=== PATIENT | male | born 1940 | race Hispanic/Latino ===

== ENCOUNTER 2023-02-25 10:04 | Inpatient (IN) | payer OTHER ==
--- NOTE | 2023-02-25 11:23 | RAD REPORT ---
EXAM DESCRIPTION: Perla Single View02/25/2023 11:16 am CLINICAL HISTORY: CHEST PAIN COMPARISON: No comparisons TECHNIQUE: Portable AP view of the chest. FINDINGS: The lungs are clear. No pneumothorax or effusion. 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 . IMPRESSION: No acute cardiopulmonary process.
[2023-02-25] MEDS ORDERED: ASPIRIN 81 MG CHEWABLE TABLET ONE (11:29)
[2023-02-25 11:31] LABS: Absolute Lymphocytes (CBC) 2.1 K/uL (0.7-4.9); Hematocrit 41.1 % (39.6-49.0); Lymphocytes % 23.9 % (15.3-44.8); MCV 91.2 fL (80-100); MPV 8.8 fL (7.6-11.3); Platelets 191 thou/uL (152-406); RBC Red Blood Cell Count 4.51 M/uL (4.33-5.43)
[2023-02-25 11:35] LABS: Protime INR 1.01
[2023-02-25 12:00] LABS: Bilirubin Direct 0.3 mg/dL (0-0.2); Bilirubin Indirect, Calculated 0.8 mg/dL (0.2-0.8); Bilirubin Total 1.1 mg/dL (0.2-1.0); Magnesium 2.4 mg/dL (1.6-2.4); Potassium 3.6 mEq/L (3.5-5.1); Protein, Total 7.7 g/dL (6.4-8.2); Troponin High Sensitivity 7.8 pg/mL (<58.9)
--- NOTE | 2023-02-25 13:00 | EDPHYS ---
Physician Documentation [facility] Name: Jaiden Florence Age: 82 yrs Sex: Male : 1940 Arrival Date: 02/25/2023 Time: 10:04 Bed 15 Private MD: ED Physician Santino Pathak HPI: 02/25 12:44 This 82 yrs old Male presents to ER via Ambulatory with complaints of Chest aretha Pain. 12:44 The patient or guardian reports chest pain that is located primarily in the substernal aretha area. Onset: yesterday. The pain does not radiate. Associated signs and symptoms: The patient has no apparent associated signs or symptoms. The chest pain is described as causing indigestion, a pressure. Duration: The patient or guardian reports multiple episodes, with no pattern. Modifying factors: The symptoms are alleviated by nothing. the symptoms are aggravated by nothing. Severity of pain: At its worst the pain was mild in the emergency department the pain has resolved and did so just prior to arrival. The patient has experienced similar episodes in the past, a few times. Historical: - Allergies: 10:19 No Known Allergies; ko1 - PSHx: 10:19 Coronary artery bypass graft; ko1 - Immunization history:: Adult Immunizations up to date. - Social history:: Smoking status: Patient denies any tobacco usage or history of. - Family history:: not pertinent. ROS: 12:44 Constitutional: Negative for fever, chills, and weight loss, Eyes: Negative for injury, aretha pain, redness, and discharge, ENT: Negative for injury, pain, and discharge, Neck: Negative for injury, pain, and swelling, Respiratory: Negative for shortness of breath, cough, wheezing, and pleuritic chest pain, Abdomen/GI: Negative for abdominal pain, nausea, vomiting, diarrhea, and constipation, Back: Negative for injury and pain, : Negative for injury, bleeding, discharge, and swelling, MS/Extremity: Negative for injury and deformity, Skin: Negative for injury, rash, and discoloration, Neuro: Negative for headache, weakness, numbness, tingling, and seizure, Psych: Negative for depression, anxiety, suicide ideation, homicidal ideation, and hallucinations, Allergy/Immunology: Negative for hives, rash, and allergies, Endocrine: Negative for neck swelling, polydipsia, polyuria, polyphagia, and marked weight changes, Hematologic/Lymphatic: Negative for swollen nodes, abnormal bleeding, and unusual bruising. 12:44 Cardiovascular: Positive for chest pain, of the chest. Exam: 12:44 Constitutional: This is a well developed, well nourished patient who is awake, alert, aretha and in no acute distress. Head/Face: Normocephalic, atraumatic. Eyes: Pupils equal round and reactive to light, extra-ocular motions intact. Lids and lashes normal. Conjunctiva and sclera are non-icteric and not injected. Cornea within normal limits. Periorbital areas with no swelling, redness, or edema. ENT: Nares patent. No nasal discharge, no septal abnormalities noted. Tympanic membranes are normal and external auditory canals are clear. Oropharynx with no redness, swelling, or masses, exudates, or evidence of obstruction, uvula midline. Mucous membranes moist. Neck: Trachea midline, no thyromegaly or masses palpated, and no cervical lymphadenopathy. Supple, full range of motion without nuchal rigidity, or vertebral point tenderness. No Meningismus. Chest/axilla: Normal chest wall appearance and motion. Nontender with no deformity. No lesions are appreciated. Cardiovascular: Regular rate and rhythm with a normal S1 and S2. No gallops, murmurs, or rubs. Normal PMI, no JVD. No pulse deficits. Respiratory: Lungs have equal breath sounds bilaterally, clear to auscultation and percussion. No rales, rhonchi or wheezes noted. No increased work of breathing, no retractions or nasal flaring. Abdomen/GI: Soft, non-tender, with normal bowel sounds. No distension or tympany. No guarding or rebound. No evidence of tenderness throughout. Back: No spinal tenderness. No costovertebral tenderness. Full range of motion. Male : Normal genitalia with no discharge or lesions. Skin: Warm, dry with normal turgor. Normal color with no rashes, no lesions, and no evidence of cellulitis. MS/ Extremity: Pulses equal, no cyanosis. Neurovascular intact. Full, normal range of motion. Neuro: Awake and alert, GCS 15, oriented to person, place, time, and situation. Cranial nerves II-XII grossly intact. Motor strength 5/5 in all extremities. Sensory grossly intact. Cerebellar exam normal. Normal gait. Psych: Awake, alert, with orientation to person, place and time. Behavior, mood, and affect are within normal limits. 12:44 ECG was reviewed by the Attending Physician. Vital Signs: 10:17 BP 175 / 84; Pulse 52; Resp 16; Temp 97.7; Pulse Ox 100% ; Weight 83.91 kg; Height 5 ko1 ft. 7 in. ; 12:08 BP 174 / 86; Pulse 55; Resp 16; Pulse Ox 96% on R/A; ph 13:00 BP 169 / 86; Pulse 83; Resp 18; Pulse Ox 98% on R/A; ph 14:00 BP 172 / 89; Pulse 53; Resp 17; Pulse Ox 99% on R/A; ph 15:30 BP 162 / 78; Pulse 61; Resp 18; Pulse Ox 99% on R/A; ph 17:07 BP 158 / 78; Pulse 62; Resp 18; Temp 97.4; Pulse Ox 98% on R/A; ph 10:17 Body Mass Index 28.97 (83.91 kg, 170.18 cm) ko1 MDM: 10:12 Patient medically screened. aretha 12:49 Differential diagnosis: abnormal EKG, acute myocardial infarction, coronary artery aretha disease chest wall pain, congestive heart failure costochondritis, esophagitis, hiatal hernia, pneumonia, stable angina, unstable angina. HEART Score: History: Moderately Suspicious (1), ECG: Non specific repolarization disturbance / LBTB / PM (1), Age: > or = 65 years (2), Risk Factors: > or = 3 Risk factors for atherosclerotic disease (2), [Hypercholesterolemia] [+ Family HX] [Obesity] Troponin: < or = 1 x Normal Limit (0). The patient was given aspirin in the Emergency Department. Data reviewed: vital signs, nurses notes, lab test result(s), EKG, radiologic studies, plain films. Consideration of Admission/Observation Escalation of care including admission/observation considered. I considered the following discharge prescriptions or medication management in the emergency department Medications were administered in the Emergency Department. See MAR. Test considered but Not performed: CT: no ct chest . Care significantly affected by the following chronic conditions: Hypertension, hard of hearing. 02/25 10:13 Order name: Basic Metabolic Panel; Complete Time: 12:14 aretha 02/25 10:13 Order name: CBC with Diff; Complete Time: 12:14 02/25 10:13 Order name: LFT's; Complete Time: 12:14 [facility] 02/25 10:13 Order name: Magnesium; Complete Time: 12:14 [facility] 02/25 10:13 Order name: NT PRO-BNP; Complete Time: 12:14 02/25 10:13 Order name: PT-INR; Complete Time: 12:14 [facility] 02/25 10:13 Order name: Troponin HS; Complete Time: 12:14 [facility] 02/25 10:13 Order name: Lipase; Complete Time: 12:14 [facility] 02/25 10:13 Order name: Urinalysis w/ reflexes; Complete Time: 18:39 [facility] 02/25 12:44 Order name: Lipid Profile; Complete Time: 18:39 [facility] 02/25 10:13 Order name: XRAY Chest (1 view); Complete Time: 12:14 [facility] 02/25 10:13 Order name: EKG; Complete Time: 10:14 [facility] 02/25 10:13 Order name: Cardiac monitoring; Complete Time: 10:51 [facility] 02/25 10:13 Order name: EKG - Nurse/Tech; Complete Time: 12:04 [facility] 02/25 10:13 Order name: IV Saline Lock; Complete Time: 10:58 [facility] 02/25 10:13 Order name: Labs collected and sent; Complete Time: 10:58 [facility] 02/25 10:13 Order name: O2 Per Protocol; Complete Time: 10:51 02/25 10:13 Order name: O2 Sat Monitoring; Complete Time: 10:51 [facility] EC:00 Rate is 57 beats/min. Rhythm is regular. QRS [place] is Normal. [place] interval is normal. QRS aretha interval is normal. QT interval is normal. No Q waves. T waves are Normal. No ST changes noted. Clinical impression: NSR w/ Non-specific ST/T Changes and No evidence of ischemia. Interpreted by me. Reviewed by me. Administered Medications: 12:04 Drug: Aspirin PO Chewable Tablet 162 mg Route: PO; ph 14:30 Follow up: Response: No adverse reaction ph 13:49 Drug: Enoxaparin Sub-Q 1 mg/kg Route: Sub-Q; Site: abdomen; ph 14:30 Follow up: Response: No adverse reaction ph 13:49 Drug: Clopidogrel PO 75 mg Route: PO; ph 14:30 Follow up: Response: No adverse reaction ph 13:49 Drug: Atorvastatin PO 20 mg Route: PO; ph 14:30 Follow up: Response: No adverse reaction ph Disposition Summary: 02/25/23 13:00 Hospitalization Ordered Hospitalization Status: Observation aretha Location: Telemetry/MedSurg (observation) aretha Condition: Fair aretha Problem: new aretha Symptoms: have improved aretha Bed/Room Type: Standard aretha Provider: Quan Colorado(02/25/23 13:16) aretha Room Assignment: 208(02/25/23 15:49) rd2 Diagnosis - Chest pain, unspecified aretha - Essential (primary) hypertension aretha Forms: - Medication Reconciliation Form aretha - SBAR form aretha - Leadership Thank You Letter aretha Signatures: Dispatcher [employer] EDSantino Lal MD MD cha Attema, Lee, MACHINE LEATHER TRIMMER-C MACHINE LEATHER TRIMMER-Cla1 Azra Larry RN RN ph Lewis, Lynsay, RN RN ll1 Lori Ayoub RN RN koAngela Santiago RN RN rd2 Corrections: (The following items were deleted from the chart) 13:16 13:00 Socrates Perales cha aretha 13:18 13:00 aretha rd2 13:49 13:18 426 rd2 ll1 15:49 13:49 ll1 rd2
--- NOTE | 2023-02-25 13:00 | ER ---
Nurse's Notes [facility] Name: Jaiden Florence Age: 82 yrs Sex: Male : 1940 Arrival Date: 02/25/2023 Time: 10:04 Bed 15 Private MD: Diagnosis: Chest pain, unspecified;Essential (primary) hypertension Presentation: 02/25 10:17 Chief complaint: Patient states: had an episode of chest pain yesterday and again this ko1 morning, non radiating, no other symptoms, had open heart surgery in [place] 3 years ago. Went to the [place] this morning and they sent me here as a precaution. Coronavirus screen: At this time, the client does not indicate any symptoms associated with coronavirus-19. Ebola Screen: No symptoms or risks identified at this time. Initial Sepsis Screen: Does the patient meet any 2 criteria? No. Patient's initial sepsis screen is negative. Does the patient have a suspected source of infection? No. Patient's initial sepsis screen is negative. Risk Assessment: Do you want to hurt yourself or someone else? Patient reports no desire to harm self or others. Onset of symptoms was February 25, 2023. 10:17 Method Of Arrival: Ambulatory ko1 10:17 Acuity: DIANN 3 ko1 Triage Assessment: 10:19 General: Appears in no apparent distress. comfortable, Behavior is calm, cooperative, ko1 appropriate for age. Pain: Denies pain. Cardiovascular: Reports had chest pain, pinpoint at midsternal area. Nonradiating, and is gone now. Historical: - Allergies: 10:19 No Known Allergies; ko1 - PSHx: 10:19 Coronary artery bypass graft; ko1 - Immunization history:: Adult Immunizations up to date. - Social history:: Smoking status: Patient denies any tobacco usage or history of. - Family history:: not pertinent. Screenin:08 [facility] ED Fall Risk Assessment (Adult) History of falling in the last 3 months, ph including since admission No falls in past 3 months (0 pts) Confusion or Disorientation No (0 pts) Intoxicated or Sedated No (0 pts) Impaired Gait No (0 pts) Mobility Assist Device Used No (0 pt) Altered Elimination No (0 pt) Score/Fall Risk Level 0 - 2 = Low Risk Oriented to surroundings, Maintained a safe environment, Hourly rounding (assess needs \T\ fall precautionary measures) done, Used ambulatory aids as needed (educated on \T\ assisted with). Abuse screen: Denies threats or abuse. Denies injuries from another. Nutritional screening: No deficits noted. Tuberculosis screening: No symptoms or risk factors identified. Assessment: 12:30 General: Appears in no apparent distress. comfortable, Behavior is calm, cooperative, ph appropriate for age. Pain: Denies pain. Complains of pain in chest Pain does not radiate. Pain began 1 day ago. Neuro: Level of Consciousness is awake, alert, obeys commands, Oriented to person, place, time, situation. Cardiovascular: Reports chest pain, Capillary refill < 3 seconds in bilateral fingers Patient's skin is warm and dry. Respiratory: Airway is patent Respiratory effort is even, unlabored. Derm: Skin is pink, warm \T\ dry. Vital Signs: 10:17 BP 175 / 84; Pulse 52; Resp 16; Temp 97.7; Pulse Ox 100% ; Weight 83.91 kg; Height 5 ko1 ft. 7 in. ; 12:08 BP 174 / 86; Pulse 55; Resp 16; Pulse Ox 96% on R/A; ph 13:00 BP 169 / 86; Pulse 83; Resp 18; Pulse Ox 98% on R/A; ph 14:00 BP 172 / 89; Pulse 53; Resp 17; Pulse Ox 99% on R/A; ph 15:30 BP 162 / 78; Pulse 61; Resp 18; Pulse Ox 99% on R/A; ph 17:07 BP 158 / 78; Pulse 62; Resp 18; Temp 97.4; Pulse Ox 98% on R/A; ph 10:17 Body Mass Index 28.97 (83.91 kg, 170.18 cm) ko1 ED Course: 10:11 Patient arrived in ED. mr 10:12 Santino Pathak MD is Attending Physician. aretha 10:19 Triage completed. ko1 10:19 Arm band placed on right wrist. Patient placed in an exam room, on a stretcher, on ko1 computational mathematician, on pulse oximetry, Patient notified of wait time. 10:27 Azra Larry RN is Primary Nurse. ph 10:58 Lipase Sent. bc6 10:58 Basic Metabolic Panel Sent. bc6 10:58 CBC with Diff Sent. bc6 10:58 LFT's Sent. bc6 10:58 Magnesium Sent. bc6 10:58 PT-INR Sent. bc6 10:58 Troponin HS Sent. bc6 10:58 Inserted saline lock: 20 gauge in right forearm, using aseptic technique. Blood bc6 collected. 11:18 XRAY Chest (1 view) In Process Unspecified. EDMS 12:59 Socrates Perales MD is Hospitalizing Provider. aretha 13:15 Quan Colorado MD is Hospitalizing Provider. aretha 13:43 Urinalysis w/ reflexes Sent. ph 14:47 Patient has correct armband on for positive identification. Placed in gown. Bed in low ph position. Call light in reach. Side rails up X2. Client placed on continuous cardiac and pulse oximetry monitoring. NIBP monitoring applied. Door closed. Noise minimized. Warm blanket given. 14:48 Patient maintains SpO2 saturation greater than 95% on room air. ph 14:48 No provider procedures requiring assistance completed. ph 17:09 Patient admitted, IV remains in place. ph Administered Medications: 12:04 Drug: Aspirin PO Chewable Tablet 162 mg Route: PO; ph 14:30 Follow up: Response: No adverse reaction ph 13:49 Drug: Enoxaparin Sub-Q 1 mg/kg Route: Sub-Q; Site: abdomen; ph 14:30 Follow up: Response: No adverse reaction ph 13:49 Drug: Clopidogrel PO 75 mg Route: PO; ph 14:30 Follow up: Response: No adverse reaction ph 13:49 Drug: Atorvastatin PO 20 mg Route: PO; ph 14:30 Follow up: Response: No adverse reaction ph Medication: 14:48 VIS not applicable for this client. ph Outcome: 13:00 Decision to Hospitalize by Provider. aretha 17:09 Admitted to Tele accompanied by tech, via wheelchair, room 208. ph 17:09 Condition: good 17:09 Instructed on the need for admit. 17:32 Patient left the ED. ph Signatures: Dispatcher [employer] EDMS Santino Pathak MD MD cha Rivera, Azra Arrington RN RN ph Lori Ayoub RN RN ko1 Zoila Meraz bc6 Corrections: (The following items were deleted from the chart) 12:09 12:08 Pulse 55bpm; Resp 16bpm; Pulse Ox 96% RA; ph ph
[2023-02-25] MEDS ORDERED: ENOXAPARIN 80 MG/0.8 ML SQ ONE (13:55)
[2023-02-25] MEDS ORDERED: CLOPIDOGREL 75 MG TABLET ONE (13:55)
[2023-02-25] MEDS ORDERED: ATORVASTATIN 20 MG TAB ONE (13:55)
[2023-02-25 14:00] LABS: Specific Gravity 1.007 (1.005-1.030); Urine Bilirubin NEGATIVE (Negative); Urine Blood Negative (Negative); Urine Clarity Clear (Clear); Urine Color Colorless (Yellow); Urine Glucose NEGATIVE (Negative); Urine Protein NEGATIVE (Negative); Urine Urobilinogen Normal (Normal); Urine pH 6.5 (5.0-7.0)
[2023-02-25] MEDS ORDERED: NA CHLORIDE 0.9% 1,000 ML IV SCH (16:00)
[2023-02-25 18:00] VITALS: O2SAT 98
[2023-02-25] MEDS ORDERED: MORPHINE 2 MG/ML SYR IV PRN (18:24)
[2023-02-25 18:30] VITALS: BMI 28.9
[2023-02-25] MEDS ORDERED: PNEUMOCOCCAL VACCINE 0.5 ML IMVAC ONE (19:00)
--- NOTE | 2023-02-25 20:18 | P.HP ---
Certification for Inpatient Patient admitted to: Inpatient With expected LOS: <2 Midnights Patient will require the following post-hospital care: None Practitioner: I am a practitioner with admitting privileges, knowledge of patient current condition, hospital course, and medical plan of care. Services: Services provided to patient in accordance with Admission requirements found in Title 42 Section 412.3 of the Code of Federal Regulations Patient History Date of Service: 02/25/23 History of Present Illness: 82-year-old male presents to the ER via ambulatory with complaints of chest pain. Chest pain is located primarily on the right side. Onset was yesterday, pain does not radiate. Family at bedside reports pain usually occurs in the morning when waking up and does not fully go away. Patient has a history of coronary artery bypass graft in 2019. ED course: EKG Rate is 57 beats/min. Rhythm is regular. QRS [place] is Normal. [place] interval is normal. QRS interval is normal. QT interval is normal. No Q waves. T waves are Normal. No ST changes noted. Clinical impression: NSR w/ Non-specific ST/T Changes and No evidence of ischemia. Vital BP 174 / 86; Pulse 55; Resp 1 6; Pulse Ox 96% on R/A. Labs are unremarkable with troponin of 7.8, repeat is pending. Chest x-ray reveals no acute cardiopulmonary process. Patient will be admitted for chest pain rule out ACS. Allergies No Known Allergies Allergy (Unverified 02/25/23 16:56) Home Medications: Amlodipine [Norvasc*] 5 mg PO DAILY 02/25/23 Aspirin [Adult Aspirin Regimen] 81 mg PO DAILY 02/25/23 Atorvastatin Calcium [Lipitor] 40 mg PO BEDTIME 02/25/23 Finasteride 5 mg PO DAILY 02/25/23 Latanoprost Ophth [Xalatan 0.005%*] 2 drops OPTH DAILY 02/25/23 Metoprolol Tartrate 12.5 mg PO BID 02/25/23 Tamsulosin [Flomax*] 0.4 mg PO DAILY 02/25/23 - Past Medical/Surgical History -: CABG 2019 -: CABG 2019 - Social History Smoking Status: Never smoker Place of Residence: Home Physical Examination - Vital Signs Temperature: 97.2 F Blood Pressure: 149/67 Pulse: 61 Respirations: 20 Pulse Ox (%): 95 - Studies Laboratory Data (last 24 hrs) 02/25/23 02/25/23 02/25/23 11:00 11:00 11:00 WBC 8.70 Hgb 14.4 Hct 41.1 Plt Count 191 PT 11.1 INR 1.01 Sodium Potassium BUN Creatinine Glucose Magnesium Total Bilirubin AST ALT Alkaline Phosphatase Triglycerides 78 Cholesterol 123 HDL Cholesterol 69 H Cholesterol/HDL Ratio 1.78 Lipase 02/25/23 11:00 WBC Hgb Hct Plt Count PT INR Sodium 137 Potassium 3.6 BUN 11 Creatinine 1.17 Glucose 107 H Magnesium 2.4 Total Bilirubin 1.1 H AST 15 ALT 20 Alkaline Phosphatase 153 H Triglycerides Cholesterol HDL Cholesterol Cholesterol/HDL Ratio Lipase 60 Assessment and Plan - Plan Assessment and Plan Chest pain r/o ACS s/sp coronary artery bypass graft Hx HTN, HLD -lipid panel -statin -ASA -trend troponin -BB -Restart home medications Full code regular diet DVT ppx: lovenox - Advance Directives Does patient have a Living Will: No Does patient have a Durable POA for Healthcare: No
[2023-02-26 03:46] LABS: Hematocrit 36.4 % (39.6-49.0); Lymphocytes % 24.5 % (15.3-44.8); MPV 8.6 fL (7.6-11.3); Platelets 183 thou/uL (152-406)
[2023-02-26 04:07] LABS: Potassium 4.2 mEq/L (3.5-5.1); Troponin High Sensitivity 12.7 pg/mL (<58.9)
[2023-02-26] MEDS ORDERED: ASPIRIN EC 81 MG TAB PO SCH (09:00)
[2023-02-26 12:33] VITALS: BP 171/81; TEMP 98
--- NOTE | 2023-02-26 13:06 | P.PN ---
Subjective Date of Service: 02/26/23 Chief Complaint: Chest pain Patient is 82 years of age started developing chest pain at 6:30 AM on Wednesday and it appeared in the emergency room further episodes of chest pain is similar to the pain that he had my and a CABG before denies any chest pain no shortness of breath Review of Systems Unremarkable Physical Examination - Vital Signs Temperature: 98 F Blood Pressure: 171/81 Pulse: 63 Respirations: 18 Pulse Ox (%): 97 - Physical Exam General: Alert, Oriented x3 Neck: Supple Respiratory: Clear to auscultation bilaterally Cardiovascular: No edema, Regular rate/rhythm, Normal S1 S2 - Studies Laboratory Data (last 24 hrs) 02/25/23 11:00 Triglycerides 78 Cholesterol 123 HDL Cholesterol 69 H Cholesterol/HDL Ratio 1.78 Assessment And Plan - Current Problems (Diagnosis) (1) Angina at rest Current Visit: Yes Status: Acute Plan: Patient is 82 years of age admitted with chest pain with a history of AL coronary artery disease s/p CABG developed sudden onset of retrosternal chest pain woke up in the morning around 630 similar to the pain that he had when he had a heart attack and a bypass operation so far his troponins are negative acute changes on the EKG blood pressure is mildly elevated continue with present treatment to evaluate for cardiac evaluation he has no acute changes on the EKG resume his home medications
[2023-02-26] MEDS ORDERED: AMLODIPINE 5 MG TAB PO SCH (13:08)
[2023-02-26] MEDS ORDERED: METOPROLOL TAR 25 MG TAB PO SCH ×2 (14:00→21:00)
--- NOTE | 2023-02-26 16:35 | EKG ---
Test Date: 2023-02-25 Test Time: 12:53:13 Applicator Sprayer: NILESH MEASUREMENT RESULTS: Intervals: Rate: 57 ND: 212 QRSD: 102 QT: 472 QTc: 459 [place]: P: 60 ND: 212 QRS: -38 T: 7 INTERPRETIVE STATEMENTS: Sinus bradycardia with 1st degree AV block Left axis deviation Abnormal ECG No previous ECG available for comparison Electronically Signed On 02-26-23 16:32:08 CDT by Holland Gonzalez
--- NOTE | 2023-02-26 18:15 | P.DS ---
Admission Date: 02/25/23 Discharge Date: 02/26/23 Disposition: ROUTINE DISCHARGE Discharge Condition: GOOD Reason for Admission: Chest pain - Problems (1) Angina at rest Status: Acute Brief History of Present Illness: AW with chest pain Hospital Course: Admitted for obs. NE of MD Trop neg. No acute EKG change. To f/u candy Gonzalez. Discharged stable no chest pain Vital Signs/Physical Exam: Temp Pulse Resp BP Pulse Ox 98 F 63 18 171/81 H 97 02/26/23 13:09 02/26/23 13:41 02/26/23 13:09 02/26/23 13:41 02/26/23 13:09 Laboratory Data at Discharge: WBC 8.20 thou/uL (4.3-10.9) 02/26/23 03:05 Hgb 12.8 g/dL (13.6-17.9) L D 02/26/23 03:05 Hct 36.4 % (39.6-49.0) L 02/26/23 03:05 Plt Count 183 thou/uL (152-406) 02/26/23 03:05 PT 11.1 SECONDS (9.5-12.5) 02/25/23 11:00 INR 1.01 02/25/23 11:00 Sodium 141 mEq/L (136-145) 02/26/23 03:05 Potassium 4.2 mEq/L (3.5-5.1) D 02/26/23 03:05 BUN 12 mg/dL (7-18) 02/26/23 03:05 Creatinine 1.02 mg/dL (0.70-1.30) 02/26/23 03:05 Glucose 102 mg/dL (74-106) 02/26/23 03:05 Magnesium 2.4 mg/dL (1.6-2.4) 02/25/23 11:00 Total Bilirubin 1.1 mg/dL (0.2-1.0) H 02/25/23 11:00 AST 15 U/L (15-37) 02/25/23 11:00 ALT 20 U/L (16-61) 02/25/23 11:00 Alkaline Phosphatase 153 U/L (45-117) H 02/25/23 11:00 Triglycerides 78 mg/dL (<150) 02/25/23 11:00 Cholesterol 123 mg/dL (<200) 02/25/23 11:00 HDL Cholesterol 69 mg/dL (40-60) H 02/25/23 11:00 Cholesterol/HDL Ratio 1.78 02/25/23 11:00 Lipase 60 U/L (13-75) 02/25/23 11:00 Home Medications: Amlodipine [Norvasc*] 5 mg PO DAILY 02/25/23 Aspirin [Adult Aspirin Regimen] 81 mg PO DAILY 02/25/23 Atorvastatin Calcium [Lipitor] 40 mg PO BEDTIME 02/25/23 Finasteride 5 mg PO DAILY 02/25/23 Latanoprost Ophth [Xalatan 0.005%*] 2 drops OPTH DAILY 02/25/23 Metoprolol Tartrate 12.5 mg PO BID 02/25/23 Tamsulosin [Flomax*] 0.4 mg PO DAILY 02/25/23 Followup: NONE,NONE [Primary Care Provider] -
[2023-02-26] MEDS ORDERED: ATORVASTATIN 40 MG TAB PO SCH (21:00)
[2023-02-26] MEDS ORDERED: LATANOPROST OPTH SCH (21:00)
[2023-02-27] MEDS ORDERED: FINASTERIDE 5 MG TAB PO SCH (09:00)
[2023-02-27] MEDS ORDERED: TAMSULOSIN 0.4 MG SR CAP PO SCH (09:00)
[2023-02-27] MEDS ORDERED: AMLODIPINE 5 MG TAB PO SCH (09:00)
--- NOTE | 2023-02-28 15:59 | CON ---
Date of Consultation: 02/26/2023 Reason For Consultation: Chest pain. History Of Present Illness: An 82-year-old male, history of hypertension, dyslipidemia, presented wi th chest pain. It is across his chest, more towards the right, and radiates to the right side. The patient has history of coronary artery disease, status post bypass in 2019. No active chest pain at the present time. Past Medical History: Hypertension, coronary artery disease, and dyslipidemia. Medications: Refer to reconciliation sheet for detailed list. Allergies: NO KNOWN DRUG ALLERGIES. Family History: No premature coronary artery disease or cancer. Social History: He does not smoke or drink. Does not use any drugs. Review of Systems: All systems reviewed and they were negative except what mentioned in HPI. Physical Examination: Vital Signs: Reviewed. Head and Neck: Pupils are equal, reactive to light. Intact eye movements. No JVD. No cervical lym phadenopathy. Neck is supple. Thyroid is not enlarged. Lungs: Clear to auscultation bilaterally. No rhonchi, wheezing, or crackles. No accessory muscle u se. Heart: Regular rate and rhythm. No extra sounds. Abdomen: Soft, nontender. Bowel sounds positive. No organomegaly. No masses or hernia. No rigidi ty or rebound. Extremities: No edema, clubbing, or cyanosis. Intact pulses. Skin: No rash. Neurologic: Alert, awake, oriented x3. No acute focal deficits appreciated. Investigations: Troponins x3 are negative. BUN 12, creatinine 1.02, and hemoglobin is 12.8. Assessment And Recommendations: 1.Chest pain, known history of coronary artery disease, status post coronary artery bypass graft, ne gative troponin. Pain is not typical. Recommend outpatient evaluation with a stress test. From Car diology standpoint, the patient can be released and we will plan for outpatient stress test and an ec ho. 2.Hypertension. Blood pressure is elevated. Needs further adjustment of medications, we will carry through his care in the office. 3.Dyslipidemia. Recommend Lipitor 40 mg at bedtime. SR/MODL Voice ID: [id number] Report ID: [id number]
== END 2023-02-26 14:59 | disposition home or self-care (01) | DRG 303 ==
LOC: ER 10:04 → ERHOLD 15:10 → 2ND 17:07
PROVIDERS: ADMIT Internal Medicine Sleep Medicine; ATTEND Internal Medicine Sleep Medicine
DX: I25.118 Atherosclerotic heart disease of native coronary artery with other forms of angina pectoris (principal); I10 Essential (primary) hypertension; E78.5 Hyperlipidemia, unspecified; H91.90 Unspecified hearing loss, unspecified ear; I25.2 Old myocardial infarction; Z95.1 Presence of aortocoronary bypass graft; Z79.82 Long term (current) use of aspirin; Z79.899 Other long term (current) drug therapy
CPT/HCPCS: 36415; 71045; 80048; 80061; 80076; 81003; 83690; 83735; 83880; 84484; 85025; 85610; 93005; 96372; 99285; J7030

== ENCOUNTER 2024-08-17 11:49 | Observation (INO) | payer OTHER ==
--- OUTSIDE RECORDS SUMMARY | 2024-08-17 11:52 | XMS REPORT | Continuity of Care Document ---
Author Name Unknown Address [address] [place] [address] Organization [facility] Address [address] [place] [address] Care Team Providers Care Interventionist Name Role Phone Pcp, Patient Does Not Have A Primary Care Physic anatoliy DEMIAN WILLIS Attending Clinician Boone Willis MD, Demian Dove Attending Clinician +- [phone] Doctor Unassigned, [place] Attending Clinician U navailable [email or web address] Attending Clinician Unavailable DEMIAN WILLIS Admitting Clinician Boone Willis MD, Demian Dove Admitting Clinician + [phone] [email or web address] Admitting Clinician Unavailable Payers Payer Name Policy Type Policy Number Effective Date Expirati on Date Source MEDICARE PART A \T\ [id number] 2004 00:00:00 [employer] LIFE [id number] 2022 00:00:00 Allergies, Adverse Reactions, Alerts Allergy Name Allergy Type Status Severity Reaction(s) Onset Date Inactive Date Treating Clinician Comments Source NO KNOWN ALLERGIE S Drug Class Active [facility] Social History Social Habit Start Date Stop Date Quantity Comments Source Sexual orientation [facility] History of Social function 2023-08-26 00:00:00 2023-08-26 00:00:00 [facility] Tobacco use and exposure 2023-04-27 00:00:00 2023-04-27 00:00:00 Smokeless tobacco non-user [facility] Sex Assigned At 1940 00:00:00 1940 00:00:00 [facility] Smoking Status Start Date Stop Date Source Tobacco smoking consumption unknown [facility] Never smoked tobacco [facility] Medications Ordered Medication Name Filled Medication Name Start Date Stop Date Current Medication? Ordering Clinician Indication Dosage Frequency Signature (SIG) Comments Components Source lactated ringers IV infusion 1,000 mL 08-25 15:15: 00 Yes 1000mL at 50 mL/hr, 1,000 mL, IV Infusion, CONTINUOUS , Starting on Marlene 08/26/23 at 1015, Until Discontinu ed, Routine, PACU [facility] ondansetron (ZOFRAN (PF)) injection 4 mg 08-25 15:07: 10 Yes 4mg 4 mg, Slow IV Push, PRN, 1 dose, Starting on Marlene 08/26/23 at 1007, Until Discontinu ed, Routine, Nausea and Vomiting (N/V), PACU [facility] neomycin-po lymyxin-dex amethasone (MAXITROL) 3.5 mg/g-10,000 unit/g-0.1 % ophthalmic ointment 08-25 14:58: 00 08-25 18:00 :37 No PRN, Starting on Marlene 08/26/23 at 0958, Until Marlene 08/26/23 at 1300, Routine, Intra-op [facility] sodium chloride (NS) injection 08-25 14:56: 00 08-25 15:01 :27 No PRN, Starting on Marlene 08/26/23 at 0956, Until Marlene 08/26/23 at 1001, Routine, Intra-op [facility] gentamicin injection 08-25 14:56: 00 08-25 15:01 :27 No PRN, Starting on Marlene 08/26/23 at 0956, Until Marlene 08/26/23 at 1001, CLYDE, Intra-op [facility] dexamethaso ne (DECADRON PHOSPHATE) injection 08-25 14:56: 00 08-25 15:01 :27 No PRN, Starting on Marlene 08/26/23 at 0956, Until Marlene 08/26/23 at 1001, Routine, Intra-op [facility] ceFAZolin (ANCEF) injection 08-25 14:56: 00 08-25 15:01 :27 No PRN, Starting on Marlene 08/26/23 at 0956, Until Marlene 08/26/23 at 1001, CLYDE, Intra-op [facility] EPINEPHrine (PF) 1:1,000 (1 mg/mL) (ADRENALIN (PF)) injection 08-25 14:43: 00 08-25 15:01 :27 No PRN, Starting on Marlene 08/26/23 at 0943, Until Marlene 08/26/23 at 1001, Routine, Intra-op [facility] chondroitin sulf-sod hyaluronate (DUOVISC VISCO ELASTIC) intraocular injection 08-25 14:43: 00 08-25 15:01 :27 No PRN, Starting on Marlene 08/26/23 at 0943, Until Marlene 08/26/23 at 1001, Routine, Intra-op [facility] balanced salt soln no.2 irrig. (BSS) ophthalmic solution 08-25 14:43: 00 08-25 15:01 :27 No PRN, Starting on Marlene 08/26/23 at 0943, Until Marlene 08/26/23 at 1001, Routine, Intra-op [facility] water for irrigation irrigation solution 08-25 14:41: 00 08-25 15:01 :27 No PRN, Starting on Marlene 08/26/23 at 0941, Until Marlene 08/26/23 at 1001, Routine, Intra-op [facility] tetracaine (PONTOCAINE ) 0.5 % ophthalmic drops 08-25 14:38: 00 08-25 15:01 :27 No PRN, Starting on Marlene 08/26/23 at 0938, Until Marlene 08/26/23 at 1001, Routine, [facility]op [facility] eye block syringe 11 mL 08-25 14:37: 00 08-25 15:01 :27 No PRN, Starting on Marlene 08/26/23 at 0937, Until Marlene 08/26/23 at 1001, Intra-op [facility] cyclopent 1%-tropic 1%-phenyl 2.5%-ketor 0.5% (MYDRIATIC #5) ophthalmic solution syringe 0.5 mL 08-25 13:45: 00 08-25 13:41 :00 No .5mL 0.5 mL, Left Eye, ONCE, 1 dose, On Marlene 08/26/23 at 0845, Routine, DSU Pre-op [facility] lactated ringers IV infusion 1,000 mL 08-25 13:45: 00 08-25 13:40 :00 No 1000mL at 42 mL/hr, 1,000 mL, IV Infusion, ONCE, 1 dose, On Marlene 08/26/23 at 0845, Routine, DSU Pre-op [facility] atorvastati n 80 mg tablet 08-25 11:00: 36 Yes 40mg Take 0.5 tablets by mouth at bedtime. [facility] aspirin 81 mg EC tablet 08-25 11:00: 36 Yes 81mg Take 1 tablet by mouth in the morning. [facility] finasteride 5 mg tablet 08-25 11:00: 36 Yes 5mg Take 1 tablet by mouth in the morning. [facility] latanoprost 0.005 % ophthalmic drops 08-25 11:00: 36 Yes 1[drp] Place 1 Drop in both eyes every evening. [facility] tamsulosin 0.4 mg 24 hr capsule 08-25 11:00: 36 Yes .4mg Take 1 capsule by mouth in the morning. [facility] metoprolol succinate XL 25 mg 24 hr tablet 08-25 11:00: 36 Yes 12.5mg Take 0.5 tablets by mouth in the morning and 0.5 tablets in the evening. [facility] sodium chloride (NS) injection 2022-06 16:05: 00 04-29 16:16 :08 No PRN, Starting on Marlene 04/29/23 at 1005, Until Marlene 04/29/23 at 1016, Routine, Intra-op [facility] neomycin-po lymyxin-dex amethasone (MAXITROL) 3.5 mg/g-10,000 unit/g-0.1 % ophthalmic ointment 2022-06 16:05: 00 04-29 16:16 :08 No PRN, Starting on Marlene 04/29/23 at 1005, Until Marlene 04/29/23 at 1016, Routine, Intra-op [facility] gentamicin injection 2022-06 16:05: 00 04-29 16:16 :08 No PRN, Starting on Marlene 04/29/23 at 1005, Until Marlene 04/29/23 at 1016, CLYDE, Intra-op [facility] dexamethaso ne (DECADRON PHOSPHATE) injection 2022-06 16:05: 00 04-29 16:16 :08 No PRN, Starting on Marlene 04/29/23 at 1005, Until Marlene 04/29/23 at 1016, Routine, Intra-op [facility] ceFAZolin (ANCEF) injection 2022-06 16:05: 00 04-29 16:16 :08 No PRN, Starting on Marlene 04/29/23 at 1005, Until Marlene 04/29/23 at 1016, CLYDE, Intra-op [facility] chondroitin sulf-sod hyaluronate (DUOVISC VISCO ELASTIC) intraocular injection 2022-06 15:59: 00 04-29 16:16 :08 No PRN, Starting on Marlene 04/29/23 at 0959, Until Malrene 04/29/23 at 1016, Routine, Intra-op [facility] EPINEPHrine (PF) 1:1,000 (1 mg/mL) (ADRENALIN (PF)) injection 2022-06 15:57: 00 04-29 16:16 :08 No PRN, Starting on Marlene 04/29/23 at 0957, Until Marlene 04/29/23 at 1016, Routine, Intra-op [facility] balanced salt soln no.2 irrig. (BSS) ophthalmic solution 2022-06 15:57: 00 04-29 16:16 :08 No PRN, Starting on Marlene 04/29/23 at 0957, Until Marlene 04/29/23 at 1016, Routine, Intra-op [facility] water for irrigation irrigation solution 2022-06 15:52: 00 04-29 16:16 :08 No PRN, Starting on Marlene 04/29/23 at 0952, Until Marlene 04/29/23 at 1016, Routine, Intra-op [facility] tetracaine (PONTOCAINE ) 0.5 % ophthalmic drops 2022-06 15:51: 00 04-29 16:16 :08 No PRN, Starting on Marlene 04/29/23 at 0951, Until Marlene 04/29/23 at 1016, Routine, Intra-op [facility] eye block syringe 11 mL 2022-06 15:50: 00 04-29 16:16 :08 No PRN, Starting on Marlene 04/29/23 at 0950, Until Marlene 04/29/23 at 1016, Intra-op [facility] cyclopent 1%-tropic 1%-phenyl 2.5%-ketor 0.5% (MYDRIATIC #5) ophthalmic solution syringe 0.5 mL 2022-06 14:15: 00 04-29 14:30 :00 No .5mL 0.5 mL, Right Eye, ONCE, 1 dose, On Marlene 04/29/23 at 0815, Routine, DSU Pre-op [facility] lactated ringers IV infusion 1,000 mL 2022-06 14:15: 00 04-29 14:31 :00 No 1000mL at 42 mL/hr, 1,000 mL, IV Infusion, ONCE, 1 dose, On Marlene 04/29/23 at 0815, Routine, DSU Pre-op [facility] atorvastati n 80 mg tablet 2022-06 10:43: 46 Yes 40mg Take 0.5 tablets by mouth at bedtime. [facility] aspirin 81 mg EC tablet 2022-06 10:43: 46 Yes 81mg Take 1 tablet by mouth in the morning. [facility] finasteride 5 mg tablet 2022-06 10:43: 46 Yes 5mg Take 1 tablet by mouth in the morning. [facility] latanoprost 0.005 % ophthalmic drops 2022-06 10:43: 46 Yes 1[drp] Place 1 Drop in both eyes every evening. [facility] tamsulosin 0.4 mg 24 hr capsule 2022-06 10:43: 46 Yes .4mg Take 1 capsule by mouth in the morning. [facility] metoprolol succinate XL 25 mg 24 hr tablet 2022-06 10:43: 46 Yes 12.5mg Take 0.5 tablets by mouth in the morning. [facility] Vital Signs Vital Name Observation Time Observation Value Comments S micaela Systolic blood pressure 2023-08-26 15:22:00 168 mm[Hg] [facility] Diastolic blood pressure 2023-08-26 15:22:00 73 mm[Hg] [facility] Heart rate 2023-08-26 15:22:00 54 /min [facility] Respiratory rate 2023-08-26 15:22:00 14 /min [facility] Oxygen saturation in Arterial blood by Pulse oximetry 2023-08-26 15:22:00 95 /min [facility] Body temperature 2023-08-26 15:00:00 36.44 Stephanie [facility] Body height 2023-08-23 17:00:00 170.2 cm [facility] Body weight 2023-08-23 17:00:00 80.74 kg [facility] BMI 2023-08-23 17:00:00 27.88 kg/m2 [facility] Systolic blood pressure 2023-08-26 15:22:00 168 mm[Hg] [facility] Diastolic blood pressure 2023-08-26 15:22:00 73 mm[Hg] [facility] Heart rate 2023-08-26 15:22:00 54 /min [facility] Respiratory rate 2023-08-26 15:22:00 14 /min [facility] Oxygen saturation in Arterial blood by Pulse oximetry 2023-08-26 15:22:00 95 /min [facility] Body temperature 2023-08-26 15:00:00 36.44 Stephanie [facility] Body height 2023-08-23 17:00:00 170.2 cm [facility] Body weight 2023-08-23 17:00:00 80.74 kg [facility] BMI 2023-08-23 17:00:00 27.88 kg/m2 [facility] Oxygen saturation in Arterial blood by Pulse oximetry 2023-04-29 16:30:00 96 /min [facility] Systolic blood pressure 2023-04-29 16:30:00 154 mm[Hg] [facility] Diastolic blood pressure 2023-04-29 16:30:00 73 mm[Hg] [facility] Heart rate 2023-04-29 16:30:00 52 /min [facility] Respiratory rate 2023-04-29 16:25:00 18 /min [facility] Body temperature 2023-04-29 16:15:00 36.39 Stephanie [facility] Body height 2023-04-27 15:00:[address] [facility] Body weight 2023-04-27 15:00:00 82.555 kg [facility] BMI 2023-04-27 15:00:00 28.51 kg/m2 [facility] Systolic blood pressure 2023-04-29 16:25:00 162 mm[Hg] [facility] Diastolic blood pressure 2023-04-29 16:25:00 77 mm[Hg] [facility] Heart rate 2023-04-29 16:25:00 51 /min [facility] Respiratory rate 2023-04-29 16:25:00 18 /min [facility] Oxygen saturation in Arterial blood by Pulse oximetry 2023-04-29 16:25:00 96 /min [place] [facility] Body temperature 2023-04-29 16:15:00 36.39 Stephanie [facility] Body height 2023-04-27 15:00:00 170.2 cm [facility] Body weight 2023-04-27 15:00:00 82.555 kg [facility] BMI 2023-04-27 15:00:00 28.51 kg/m2 [facility] Procedures Procedure Date / Time Performed Performing Clinician Source PHACOEMULSIFICATION OF CATARACT WITH INTRAOCULAR LENS IMPLANT 2023-08-26 14:29:00 Demian Willis [facility] PATIENT QUESTIONNAIRE 2023-08-26 05:01:00 Doctor Unassigned, [place] [facility] PHACOEMULSIFICATION OF CATARACT WITH INTRAOCULAR LENS IMPLANT 2023-04-29 15:39:00 Demian Willis [facility] PATIENT QUESTIONNAIRE 2023-04-29 06:01:00 Doctor Unassigned, [place] [facility] DAY SURGERY - ADC 2023-04-29 06:01:00 Doctor Unassigned, [place] [facility] ASSIGNMENT OF BENEFITS 2023-04-20 17:23:11 Doctor Unassigned, [place] [facility] Encounters Start Date/Time End Date/Time Encounter Type Admission Type Attending Clinicians Care Facility Care Department Encounter ID Source 2023-08-26 08:32:00 2023-08-26 10:30:00 Outpatient R DEMIAN WILLIS [facility] OPH [id number] [facility] 2023-08-26 08:32:00 2023-08-26 10:30:00 Hospital Encounter Demian Willis [facility] [id number] [id number] [id number] [facility] 2023-08-26 09:45:00 2023-08-26 10:22:00 Surgery LazaroDemian Derrell [facility] [id number] [id number] [id number] [id number] [facility] 2023-08-26 00:00:00 2023-08-26 00:00:00 Orders Only Doctor Unassigned, [place] [facility] [id number] [id number] [id number] [id number] [facility] 2023-07-27 00:00:00 2023-07-27 00:00:00 Outpatient GUU_SHENG_Y [facility] [id number] [facility] 2023-07-25 00:00:00 2023-07-25 00:00:00 Outpatient GUU_SHENG_Y [facility] [id number] [facility] 2023-07-22 00:00:00 2023-07-22 00:00:00 Outpatient GUU_SHENG_Y [facility] [id number] [facility] 2023-04-29 08:10:00 2023-04-29 10:39:00 Outpatient R LAZARODEMIAN ORTIZ [facility] OPH [id number] [facility] 2023-04-29 08:10:00 2023-04-29 10:39:00 Hospital Encounter Demian Willis [facility] [id number] 350.1.13.10 [id number] [id number] [facility] 2023-04-29 09:52:00 2023-04-29 10:29:00 Surgery Lazaro Demian Dove [facility] [id number] 350.1.13.10 [id number] [id number] [facility] 2023-04-29 00:00:00 2023-04-29 00:00:00 Orders Only Doctor Unassigned, [place] [facility] [id number] 350.1.13.10 [id number] [id number] [facility] 2023-04-20 00:00:00 2023-04-20 00:00:00 Orders Only Doctor Unassigned, [place] [facility] [id number] 350.1.13.10 [id number] [id number] [facility] History and Physical Notes Date/Time Note Provider Source 2023-08-26 08:23:20 H&P was reviewed and patient was examined and there was no change in patients condition. [facility] Procedure Notes Date/Time Note Provider Source 2023-08-26 08:24:15 PROCEDURE: CATARACT EXTRACTION WITH INTRAOCULAR IMPLANT DATE OF SURGERY:08/26/2023 SURGEON: Demian Willis MD PROCEDURE: Extracapsular cataract extraction with intraocular lens implantation, via phacoemulsification of the Left eye. PREOPERATIVE DIAGNOSIS: Cataract Left eye. POSTOPERATIVE DIAGNOSIS: Cataract Left eye. ANESTHESIA: Local MAC ESTIMATED BLOOD LOSS: None PROCEDURE IN DETAIL: The patient was brought to the operating room where they were given IV sedation. The patient was then given a Retrobulbar injection with a 50-50 mixture of Marcaine 0.75% and Xylocaine 2%, 3-1/2 mL to the Left eye. They were then prepped and draped in the usual sterile manner. A lid speculum was placed in the Left eye. BSS was placed on the cornea. A crescent blade was used to create a 2.2 mm incision at the corneal limbus at the 1:00 position. A 15 blade was used to create a stab incision at the corneal limbus at the 10:00 position. A keratome was used to enter the anterior chamber. The anterior chamber was filled with Viscoat. A cystotome needle was used to start the capsulorrhexis. Utrata forceps completed a 360 degree curvilinear capsulorrhexis. BSS on a blunt cannula was used to hydrodissect and hydrodelineate the lens nucleus and the lens freely rotated. Phacoemulsification was used to remove the nuclear material in a divide and conquer technique. The irrigation and aspiration were used to remove the remaining cortical material. Provisc on a blunt cannula was injected into the posterior capsule and anterior chamber. A Sy60WF 19.0 diopter acrylic lens was injected into the posterior capsule through the original corneal scleral incision. The remaining provisc was irrigated and aspirated from the eye. BSS on a blunt cannula was used to inflate the anterior chamber. A Weck-Stephanie sponge was used to check the wound for leaks and none was found. A combination of dexamethasone and antibiotics was injected into the conjunctiva adjacent to the original corneal scleral wound. The lid speculum was removed from the eye. Tobradex was placed on the conjunctiva. The eye was patched and shielded. The patient was discharged in the operating room in good condition. INTRAOPERATIVE COMPLICATIONS: None INTRAOPERATIVE COMPLICATIONS: None PATIENT NAME: Jaiden Luther [facility] REC#: [id number] VISIT #: ROOM #: [facility] [address] [place], [place] [address] [facility] 2023-08-26 08:23:47 Brief Operative Note Date Of Operation: 08/26/2023 Surgeons Name: DEMIAN WILLIS Pre Operative Diagnosis: CATARACT LEFT EYE Post Operative Diagnosis: CATARACT LEFT EYE Operation Performed: UNDER LOCAL ANESTHESIA THE EYE WAS/WERE EXPOSED USING A LID SPECULUM. ENTRY INTO THE EYE THROUGH A MINIMAL INCISION WS MADE FOR THE SURGICAL REMOVAL OF THE NATURAL LENS (CATARACT) AND AN ARTIFICIAL INTRAOCULAR LENS IMPLANT WAS INSERTED WITHOUT COMPLICATION. Patient's Condition: PATIENT WAS DISCHARGED FROM THE FACILITY IN STABLE CONDITION. PLEASE SEE THE PATIENT DISCHARGE INSTRUCTIONS. Please see dictated operative report for additional detail. [facility] Notes Date/Time Note Provider Source 2023-08-23 12:43:06 Images from the original note were not included. Your procedure is at [facility] on 08/26/23. The address is [address] [place] [address], [id number]. [facility] nursing staff will call you the workday before your procedure to let you know what time to arrive.On the day of your procedure, please go inside that door and check in at the desk. Please note: You may not travel home alone and that includes in a taxi or by bus. We must speak to your Responsible Adult (who will be picking you up) the morning of your procedure, before the start of your procedure. This person must be an adult over the age of 18 years of age. Do not eat any solid food after midnight the night before surgery. You may have sips of clear liquids such as water, gatorade, and sprite up until two hours before your scheduled procedure. You may take your medications with a sip of water as directed by physician. Anticoagulants will be per physician guidance. Medication Note(s)/Instructions: Will hold ASA two days prior to surgery per MD. Pending screening, we may test for COVID. If a patient tests positive, their cases are cancelled and/or rescheduled. COVID SCREENING NOTE: Denies COVID symptoms, no testing required. Additional requests, questions, concerns:CB number provided. Patient verbalized understanding of pre-op instructions and voiced no further questions at this time. [facility]
[2024-08-17 12:37] LABS: Absolute Monocytes 0.7 K/uL (0.1-1.3); Absolute Neutrophil 9.4 K/uL (1.8-8.0); Basophils % 0.2 % (0-1.3); Eosinophils % 0.3 % (0-4.4); Hematocrit 37.3 % (39.6-49.0); Hemoglobin 12.8 g/dL (13.6-17.9); Lymphocytes % 9.4 % (15.3-44.8); MCH 30.8 pg (27.0-35.0); MCHC 34.2 g/dL (32.0-36.0); MCV 90.2 fL (80-100); MPV 8.5 fL (7.6-11.3); Monocytes % 6.4 % (3.3-12.3); Neutrophils % 83.7 % (41.7-73.7); Nucleated Red Blood Cells % 0.1 % (0-0); Platelets 198 thou/uL (152-406); RBC Red Blood Cell Count 4.14 M/uL (4.33-5.43); Red Cell Distribution Width 14.1 % (12.1-15.2)
[2024-08-17 12:57] LABS: Albumin 3.2 g/dL (3.4-5.0); Albumin/Globulin Ratio 0.9 (1.1-1.8); Bilirubin Direct 0.3 mg/dL (0-0.2); Bilirubin Indirect, Calculated 0.7 mg/dL (0.2-0.8); Globulin 3.4 g/dL (2.3-3.5); Protein, Total 6.6 g/dL (6.4-8.2); Troponin High Sensitivity 8.3 pg/mL (<58.9)
--- NOTE | 2024-08-17 13:26 | RAD REPORT ---
EXAMINATION: ONE VIEW CHEST XR CLINICAL INDICATION: Male, 83 years old.,CHEST PAIN TECHNIQUE: Frontal chest projection is submitted. Examination is limited by patient positioning and t echnique. COMPARISON: 02/25/2023 FINDINGS: The lungs are grossly clear although suboptimal inspiratory effort somewhat limits evaluation. No pn eumothorax or sizable effusion. The heart is normal in size. 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 IMPRESSION: No acute intrathoracic abnormalities.
--- NOTE | 2024-08-17 14:44 | ER ---
Nurse's Notes [facility] Name: Jaiden Luther Age: 83 yrs Sex: Male : 1940 Arrival Date: 08/17/2024 Time: 11:49 Bed 13 Private MD: Diagnosis: Chest pain, unspecified;New onset atrial flutter Presentation: 08/17 12:19 Chief complaint: EMS states: [facility] and new cm10 onset A-Flutter. Pt received ASA 243mg by EMS. Pt states that the pain is to the center and right side of chest. Coronavirus screen: Client denies travel out of the [place] in the last 14 days. Ebola Screen: Patient denies travel to an Ebola-affected area in the 21 days before illness onset. Initial Sepsis Screen: Does the patient meet any 2 criteria? No. Patient's initial sepsis screen is negative. Does the patient have a suspected source of infection? No. Patient's initial sepsis screen is negative. Risk Assessment: Do you want to hurt yourself or someone else? Patient reports no desire to harm self or others. Onset of symptoms was August 17, 2024. 12:19 Method Of Arrival: EMS: [facility] cm10 12:19 Acuity: DIANN 2 cm10 12:20 Care prior to arrival: Medication(s) given: ASA, 81 mg, x 3, IV initiated. 20 GA, in cm10 the right antecubital area. Triage Assessment: 12:33 General: Appears in no apparent distress. comfortable, Behavior is calm, cooperative. cm10 Pain: Complains of pain in chest Pain does not radiate. Pain currently is 3 out of 10 on a pain scale. Quality of pain is described as pressure. Neuro: No deficits noted. Level of Consciousness is awake, alert, obeys commands, Oriented to person, place, time, situation, Appropriate for age. Cardiovascular: Heart tones present Patient's skin is warm and dry. Rhythm is atrial flutter Chest pain is described as Pain is 3 out of 10 on a pain scale. quality is pressure, is located in substernal area. Cardiovascular:. Cardiovascular: Edema is 1+ to left ankle and right ankle. Respiratory: No deficits noted. Airway is patent Respiratory effort is even, unlabored, Respiratory pattern is regular, symmetrical, Breath sounds are clear bilaterally. Derm:. Historical: - Allergies: 12:21 No Known Allergies; cm10 - PSHx: 12:21 Coronary artery bypass graft; cm10 - Immunization history:: Adult Immunizations up to date. - Infectious Disease History:: Denies. - Social history:: Smoking status: Patient denies any tobacco usage or history of. - Family history:: not pertinent. Screenin:54 [facility] ED Fall Risk Assessment (Adult) History of falling in the last 3 months, cm10 including since admission No falls in past 3 months (0 pts) Confusion or Disorientation No (0 pts) Intoxicated or Sedated No (0 pts) Impaired Gait No (0 pts) Mobility Assist Device Used No (0 pt) Altered Elimination No (0 pt) Score/Fall Risk Level 0 - 2 = Low Risk Oriented to surroundings, Maintained a safe environment, Hourly rounding (assess needs \T\ fall precautionary measures) done. Abuse screen: Denies threats or abuse. Denies injuries from another. Nutritional screening: No deficits noted. Tuberculosis screening: No symptoms or risk factors identified. Assessment: 14:52 Reassessment: Patient appears in no apparent distress at this time. Patient and/or cm10 family updated on plan of care and expected duration. Pain level reassessed. Patient is alert, oriented x 3, equal unlabored respirations, skin warm/dry/pink. 16:11 Reassessment: Patient appears in no apparent distress at this time. Patient and/or cm10 family updated on plan of care and expected duration. Pain level reassessed. Patient is alert, oriented x 3, equal unlabored respirations, skin warm/dry/pink. 17:51 Reassessment: Patient appears in no apparent distress at this time. Patient and/or cm10 family updated on plan of care and expected duration. Pain level reassessed. Patient is alert, oriented x 3, equal unlabored respirations, skin warm/dry/pink. DES[employer] [phone]. 19:35 Pain: Pain began suddenly. cm10 Vital Signs: 12:19 BP 129 / 77; Pulse 70; Resp 16; Temp 99(O); Pulse Ox 97% on R/A; Weight 78.02 kg; cm10 Height 5 ft. 7 in. ; Pain 3/10; 13:00 BP 129 / 78; Pulse 71; Resp 20; Pulse Ox 96% on R/A; cm10 13:30 BP 131 / 75; Pulse 69; Resp 20; Pulse Ox 99% on R/A; cm10 14:00 BP 132 / 70; Pulse 70; Resp 16; Pulse Ox 98% on R/A; cm10 16:11 BP 151 / 84; Pulse 71; Resp 15; Pulse Ox 96% on R/A; cm10 19:34 BP 115 / 67; Pulse 71; Resp 15; Temp 98.8(O); Pulse Ox 97% on R/A; cm10 12:19 Body Mass Index 26.94 (78.02 kg, 170.18 cm) cm10 12:19 Pain Scale: Adult cm10 ED Course: 11:57 Patient arrived in ED. iw 11:57 Zane Olvera MD is Attending Physician. rt 12:18 Karma Winston, JAMSHID is Primary Nurse. cm10 12:20 Triage completed. cm10 12:21 Arm band placed on right wrist. Patient placed in an exam room, on a stretcher, on cm10 pvc monitor, on pulse oximetry. 12:21 Maintain EMS IV. Dressing intact. Good blood return noted. Site clean \T\ dry. Gauge \T\ cm 10 site: 20G right AC. Flushed with 10 mL NS. Patient maintains SpO2 saturation greater than 95% on room air. 12:30 Patient has correct armband on for positive identification. Bed in low position. Call cm10 light in reach. Side rails up X2. Client placed on continuous cardiac and pulse oximetry monitoring. NIBP monitoring applied. quality assurance monitor final on. 12:35 Initial lab(s) drawn, by me, sent to lab. EKG done, by ED staff, reviewed by Zane Olvera MD. 12:54 XRAY Chest (1 view) In Process Unspecified. EDMS 14:43 Jhon Tello MD is Hospitalizing Provider. rt 19:35 Provided Education on: Need for admit. cm10 19:35 No provider procedures requiring assistance completed. Patient admitted, IV remains in cm10 place. Administered Medications: No medications were administered Medication: 14:54 VIS not applicable for this client. cm10 Outcome: 14:44 Decision to Hospitalize by Provider. rt 19:35 Admitted to Med/surg accompanied by tech, via wheelchair, room 216, cm10 19:35 Condition: good 19:35 Instructed on the need for admit, 20:19 Patient left the ED. cm10 Signatures: Dispatcher [employer] Mouna Boyd, JAMSHID BREEN iw Zane Olvera MD MD rt Martinez, Clarissa, RN RN cm10
--- NOTE | 2024-08-17 14:44 | EDPHYS ---
Physician Documentation [facility] Name: Jaiden Florence Age: 83 yrs Sex: Male : 1940 Arrival Date: 08/17/2024 Time: 11:49 Bed 13 Private MD: ED Physician Zane Olvera HPI: 08/17 13:29 This 83 yrs old Male presents to ER via EMS with complaints of Chest Pain. rt 13:29 Patient presents to the ED with right-sided chest pain, radiates to the center of the rt chest. The symptoms have all but resolved currently. Symptoms started today. Denies exertional component. Denies dyspnea, acute complaints. Patient was seen [facility], was found to have a flutter. Symptoms are moderate in severity, no other aggravating or alleviating factors.. Historical: - Allergies: 12:21 No Known Allergies; cm10 - PSHx: 12:21 Coronary artery bypass graft; cm10 - Immunization history:: Adult Immunizations up to date. - Infectious Disease History:: Denies. - Social history:: Smoking status: Patient denies any tobacco usage or history of. - Family history:: not pertinent. ROS: 13:29 Constitutional: Negative for fever, chills, and weight loss, Respiratory: Negative for rt shortness of breath, cough, wheezing, and pleuritic chest pain, Abdomen/GI: Negative for abdominal pain, nausea, vomiting, diarrhea, and constipation, MS/Extremity: Negative for injury and deformity, Skin: Negative for injury, rash, and discoloration, Neuro: Negative for headache, weakness, numbness, tingling, and seizure, 13:29 Cardiovascular: Positive for chest pain, Negative for edema, Exam: 13:29 Constitutional: This is a well developed, well nourished patient who is awake, alert, rt and in no acute distress. Head/Face: Normocephalic, atraumatic. Chest/axilla: Normal chest wall appearance and motion. Nontender with no deformity. No lesions are appreciated. Cardiovascular: Regular rate and rhythm with a normal S1 and S2. No gallops, murmurs, or rubs. Normal PMI, no JVD. No pulse deficits. Respiratory: Lungs have equal breath sounds bilaterally, clear to auscultation and percussion. No rales, rhonchi or wheezes noted. No increased work of breathing, no retractions or nasal flaring. Abdomen/GI: Soft, non-tender, with normal bowel sounds. No distension or tympany. No guarding or rebound. No evidence of tenderness throughout. Skin: Warm, dry with normal turgor. Normal color with no rashes, no lesions, and no evidence of cellulitis. MS/ Extremity: Pulses equal, no cyanosis. Neurovascular intact. Full, normal range of motion. Neuro: Awake and alert, GCS 15, oriented to person, place, time, and situation. Cranial nerves II-XII grossly intact. Motor strength 5/5 in all extremities. Sensory grossly intact. Cerebellar exam normal. Normal gait. 13:29 ECG was reviewed by the Attending Physician. Vital Signs: 12:19 BP 129 / 77; Pulse 70; Resp 16; Temp 99(O); Pulse Ox 97% on R/A; Weight 78.02 kg; cm10 Height 5 ft. 7 in. ; Pain 3/10; 13:00 BP 129 / 78; Pulse 71; Resp 20; Pulse Ox 96% on R/A; cm10 13:30 BP 131 / 75; Pulse 69; Resp 20; Pulse Ox 99% on R/A; cm10 14:00 BP 132 / 70; Pulse 70; Resp 16; Pulse Ox 98% on R/A; cm10 16:11 BP 151 / 84; Pulse 71; Resp 15; Pulse Ox 96% on R/A; cm10 19:34 BP 115 / 67; Pulse 71; Resp 15; Temp 98.8(O); Pulse Ox 97% on R/A; cm10 12:19 Body Mass Index 26.94 (78.02 kg, 170.18 cm) cm10 12:19 Pain Scale: Adult cm10 MDM: 12:08 Medical Screening Exam initiated rt 14:44 Differential diagnosis: ACS, atrial flutter, dysrhythmia. HEART Score: History: Highly rt Suspicious (2), ECG: Non specific repolarization disturbance / LBTB / PM (1), Age: > or = 65 years (2), Risk Factors: > or = 3 Risk factors for atherosclerotic disease (2), Troponin: < or = 1 x Normal Limit (0), Total Score = 7. The patient was not given aspirin in the Emergency Department. Administered by EMS. Data reviewed: vital signs, nurses notes. Independent interpretation of the following test(s) in the Emergency Department X-Ray: My interpretation is No infiltrate seen on interpretation of x-ray images. Test considered but Not performed: CT: Low suspicion for pulmonary embolus, CT angiogram not decayed. Care significantly affected by the following chronic conditions: Coronary artery disease. Counseling: I had a detailed discussion with the patient and/or guardian regarding the historical points, exam findings, and any diagnostic results supporting the discharge/admit diagnosis, lab results, radiology results, the need for further work-up and treatment in the hospital. Response to treatment: the patient's symptoms have resolved after treatment, the patient's pain is gone. 08/17 11:59 Order name: Basic Metabolic Panel; Complete Time: 12:58 rt 08/17 11:59 Order name: CBC with Diff; Complete Time: 12:58 rt 08/17 11:59 Order name: LFT's; Complete Time: 12:58 rt 08/17 11:59 Order name: NT PRO-BNP; Complete Time: 12:58 rt 08/17 11:59 Order name: Troponin HS; Complete Time: 12:58 rt 08/17 16:08 Order name: Urinalysis w/ reflexes EDMS 08/17 16:08 Order name: CBC with Automated Diff EDMS 08/17 16:08 Order name: CBC with Automated Diff EDMS 08/17 16:08 Order name: Comprehensive Metabolic Panel EDMS 08/17 16:08 Order name: Comprehensive Metabolic Panel EDMS 08/17 16:08 Order name: Magnesium EDMS 08/17 16:08 Order name: Magnesium EDMS 08/17 16:08 Order name: NT PRO-BNP EDMS 08/17 16:08 Order name: NT PRO-BNP EDMS 08/17 16:08 Order name: Troponin High Sensitivity EDMS 08/17 16:08 Order name: Troponin High Sensitivity EDMS 08/17 16:08 Order name: Troponin High Sensitivity EDMS 08/17 16:08 Order name: Troponin High Sensitivity EDMS 08/17 11:59 Order name: XRAY Chest (1 view); Complete Time: 13:27 rt 08/17 15:17 Order name: Echo with Doppler EDMS 08/17 11:59 Order name: EKG; Complete Time: 11:59 rt 08/17 16:06 Order name: CONS Physician Consult EDMS 08/17 11:59 Order name: Cardiac monitoring; Complete Time: 12:33 rt 08/17 11:59 Order name: EKG - Nurse/Tech; Complete Time: 12:33 rt 08/17 11:59 Order name: IV Saline Lock; Complete Time: 12:22 rt 08/17 11:59 Order name: Labs collected and sent; Complete Time: 12:33 rt 08/17 11:59 Order name: O2 Per Protocol; Complete Time: 12:22 rt 08/17 11:59 Order name: O2 Sat Monitoring; Complete Time: 12:22 rt EC:29 Rate is 71 beats/min. Rhythm is regular, A flutter with No ectopy. Left axis deviation rt noted. QRS interval is normal. QT interval is normal. No Q waves. No ST changes noted. Administered Medications: No medications were administered Disposition Summary: 08/17/24 14:44 Hospitalization Ordered Notes: Hospitalization Status: Observation rt Provider: Jhon Tello rt Location: Telemetry/MedSurg (observation) rt Condition: Stable rt Problem: new rt Symptoms: have improved rt Bed/Room Type: Standard rt Room Assignment: 216(08/17/24 19:19) iw Diagnosis - Chest pain, unspecified rt - New onset atrial flutter rt Forms: - Medication Reconciliation Form rt - SBAR form rt - Leadership Thank You Letter rt Signatures: Dispatcher [employer] Mouna Boyd, JAMSHID BREEN iw Zane Olvera MD MD rt Karma Winston RN RN cm10 Corrections: (The following items were deleted from the chart) 19:19 14:44 rt iw
--- NOTE | 2024-08-17 15:13 | P.HP ---
Certification for Inpatient Patient admitted to: Observation Practitioner: I am a practitioner with admitting privileges, knowledge of patient current condition, hospital course, and medical plan of care. Services: Services provided to patient in accordance with Admission requirements found in Title 42 Section 412.3 of the Code of Federal Regulations Patient History Date of Service: 08/17/24 Reason for admission: chest pain rule out ID History of Present Illness: 83-year-old male with a past medical history of ID, CABG x 6, hard of hearing, presents to the emergency room with chest pain 4 out of 10, nonradiating. He reports chest pain improved, he denies shortness of breath, diaphoresis, nausea vomiting diarrhea. Plan to admit for chest pain rule out ID, atrial flutter, with cardiology to consult, ED evaluaton troponin negative, elevated BNP 4255, mild leukocytosis 11.20, microcytic anemia 12.8, 37.3 chest x-ray no acute abnormality. BP 129 / 77; Pulse 70; Resp 16; Temp 99(O); Pulse Ox 97% on R/A; Weight 78.02 kg;Height 5 ft. 7 in. ; Pain 3/10; Rate is 71 beats/min. Rhythm is regular, A flutter with No ectopy. Left axis deviation noted. QRS interval is normal. QT interval is normal. No Q waves. No ST changes noted. Allergies No Known Allergies Allergy (Unverified 02/25/23 16:56) Home Medications: Amlodipine [Norvasc*] 5 mg PO DAILY 02/25/23 Aspirin [Adult Aspirin Regimen] 81 mg PO DAILY 02/25/23 Atorvastatin Calcium [Lipitor] 40 mg PO BEDTIME 02/25/23 Finasteride 5 mg PO DAILY 02/25/23 Latanoprost Ophth [Xalatan 0.005%*] 2 drops OPTH DAILY 02/25/23 Metoprolol Tartrate 12.5 mg PO BID 02/25/23 Tamsulosin [Flomax*] 0.4 mg PO DAILY 02/25/23 - Past Medical/Surgical History -: CABG 2019 -: CABG 2019 Review of Systems 10-point ROS is otherwise unremarkable Physical Examination - Physical Exam General: Alert, In no apparent distress, Oriented x3 HEENT: Atraumatic, Normocephalic, PERRLA Neck: Supple, 2+ carotid pulse no bruit Respiratory: Clear to auscultation bilaterally, Normal air movement Cardiovascular: No edema, Normal pulses, Other (Atrial flutter 71) Capillary refill: <2 Seconds Gastrointestinal: Normal bowel sounds, Soft and benign, Non-distended Musculoskeletal: No clubbing, No swelling Integumentary: No breakdown, No significant lesion, No tenderness/swelling Neurological: Normal gait, Normal speech, Normal strength at 5/5 x4 extr, Cranial nerves 3-12 intact - Studies Laboratory Data (last 24 hrs) 08/17/24 08/17/24 12:31 12:31 WBC 11.20 H Hgb 12.8 L Hct 37.3 L Plt Count 198 Sodium 137 Potassium 4.0 BUN 14 Creatinine 1.03 Glucose 114 H Total Bilirubin 1.0 AST 19 ALT 23 Alkaline Phosphatase 144 H Assessment and Plan - Problems (Diagnosis) (1) Chest pain, rule out acute myocardial infarction Current Visit: Yes Status: Acute (2) Atrial flutter Current Visit: Yes Status: Acute (3) History of coronary artery bypass graft x 6 Current Visit: Yes Status: Acute - Plan 83-year-old male with a past medical history of ID, CABG x 6, hard of hearing, presents to the emergency room with chest pain 4 out of 10, nonradiating. He reports chest pain improved, he denies shortness of breath, diaphoresis, nausea vomiting diarrhea. Plan to admit for chest pain rule out ID, atrial flutter, with cardiology to consult, ED evaluaton troponin negative, elevated BNP 4255, mild leukocytosis 11.20, microcytic anemia 12.8, 37.3 chest x-ray no acute abnormality. BP 129 / 77; Pulse 70; Resp 16; Temp 99(O); Pulse Ox 97% on R/A; Weight 78.02 kg;Height 5 ft. 7 in. ; Pain 3/10; Rate is 71 beats/min. Rhythm is regular, A flutter with No ectopy. Left axis deviation noted. QRS interval is normal. QT interval is normal. No Q waves. No ST changes noted. Assessment Chest pain rule out ID Atrial flutter History of CABG x 6 -Cardiology consult, telemetry -Trend troponins, BNP -Aspirin, antilipid, beta-rocio -ECHO ordered Full code DVT Lovenox Diet cardiac Disposition Home independent prior Discharge Plan: Home - Advance Directives Does patient have a Living Will: No Does patient have a Durable POA for Healthcare: No - Code Status/Comfort Care Code Status: Full Code Critical Care: No Time Spent Managing Pts Care (In Minutes): 55
[2024-08-17] MEDS ORDERED: ONDANSETRON 4 MG/2 ML VIAL IV PRN (16:05)
[2024-08-17] MEDS ORDERED: ACETAMINOPHEN 500 MG TAB PO PRN (16:05)
--- NOTE | 2024-08-17 17:53 | P.CNS ---
Date of Consult: 08/17/24 Chief Complaint: chest pain rule out MD History of Present Illness: Patient with PMH of CAD s/p CABG, presented to the hospital with chest pain, left sided first then right sided, lasted for few minutes, denies any other cardiac symptoms, no CRISTINA, no SOB, no palpitations, no syncope. Allergies No Known Allergies Allergy (Unverified 02/25/23 16:56) Home medications list reviewed: Yes Home Medications: Amlodipine [Norvasc*] 5 mg PO DAILY 02/25/23 Aspirin [Adult Aspirin Regimen] 81 mg PO DAILY 02/25/23 Atorvastatin Calcium [Lipitor] 40 mg PO BEDTIME 02/25/23 Finasteride 5 mg PO DAILY 02/25/23 Latanoprost Ophth [Xalatan 0.005%*] 2 drops OPTH DAILY 02/25/23 Metoprolol Tartrate 12.5 mg PO BID 02/25/23 Tamsulosin [Flomax*] 0.4 mg PO DAILY 02/25/23 - Past Medical/Surgical History -: CABG 2019 -: CABG 2019 Review of Systems 10-point ROS is otherwise unremarkable Physical Examination General: Alert, In no apparent distress HEENT: Atraumatic, PERRLA, Mucous membr. moist/pink, EOMI, Sclerae nonicteric Neck: Supple, 2+ carotid pulse no bruit, No LAD, Without JVD or thyroid abnormality Respiratory: Clear to auscultation bilaterally, Normal air movement Cardiovascular: Regular rate/rhythm, Normal S1 S2 Gastrointestinal: Normal bowel sounds, No tenderness Musculoskeletal: No tenderness Integumentary: No rashes Neurological: Normal gait, Normal speech, Normal tone, Normal affect Lymphatics: No axilla or inguinal lymphadenopathy Laboratory Data (last 24 hrs) 08/17/24 08/17/24 12:31 12:31 WBC 11.20 H Hgb 12.8 L Hct 37.3 L Plt Count 198 Sodium 137 Potassium 4.0 BUN 14 Creatinine 1.03 Glucose 114 H Total Bilirubin 1.0 AST 19 ALT 23 Alkaline Phosphatase 144 H - Problems (1) Atrial flutter Current Visit: Yes Status: Acute Plan: Patient is currently rate controlled continue lopressor 12.5 mg po BID Start Eliquis 5 mg po BID monitor on tele (2) Chest pain, rule out acute myocardial infarction Current Visit: Yes Status: Acute Plan: atypical, cardiac enzymes are negative. patient recently seen in cardiology office with negative stress test. continue ASA 81 mg daily continue lopressor 12.5 BID No further inpatient cardiac testing needed.
[2024-08-17 19:39] VITALS: BMI 26.9
[2024-08-17 20:29] VITALS: O2SAT 97
[2024-08-17] MEDS: ATORVASTATIN 40 MG TAB PO SCH (21:00)
[2024-08-17] MEDS ORDERED: ATORVASTATIN 80 MG TAB PO SCH (21:00)
[2024-08-17] MEDS: METOPROLOL TAR 25 MG TAB PO SCH (21:08)
[2024-08-18 04:48] LABS: Absolute Eosinophils 0.1 K/uL (0-0.5); Absolute Monocytes 0.9 K/uL (0.1-1.3); Absolute Neutrophil 6.3 K/uL (1.8-8.0); Basophils % 0.3 % (0-1.3); Eosinophils % 1.1 % (0-4.4); Hematocrit 36.6 % (39.6-49.0); Hemoglobin 12.7 g/dL (13.6-17.9); MCH 31.3 pg (27.0-35.0); MCHC 34.8 g/dL (32.0-36.0); MPV 8.8 fL (7.6-11.3); Monocytes % 9.5 % (3.3-12.3); Neutrophils % 68.1 % (41.7-73.7); Platelets 193 thou/uL (152-406); RBC Red Blood Cell Count 4.07 M/uL (4.33-5.43); Red Cell Distribution Width 14.5 % (12.1-15.2)
[2024-08-18 05:11] LABS: Albumin 2.9 g/dL (3.4-5.0); Albumin/Globulin Ratio 0.9 (1.1-1.8); Anion Gap 9.9 mEq/L (5.0-15.0); Bilirubin Total 1.2 mg/dL (0.2-1.0); Globulin 3.4 g/dL (2.3-3.5); Magnesium 2.2 mg/dL (1.6-2.4); Potassium 3.9 mEq/L (3.5-5.1); Protein, Total 6.3 g/dL (6.4-8.2)
[2024-08-18] MEDS: LATANOPROST 0.005% 2.5ML OPTH OPTH SCH (09:00)
--- NOTE | 2024-08-18 09:25 | P.DS ---
Admission Date: 08/17/24 Discharge Date: 08/18/24 Disposition: ROUTINE DISCHARGE Reason for Admission: chest pain rule out WA - Problems (1) Chest pain, rule out acute myocardial infarction Status: Acute (2) Atrial flutter Status: Acute (3) History of coronary artery bypass graft x 6 Status: Acute Brief History of Present Illness: 83-year-old male with a past medical history of WA, CABG x 6, hard of hearing, presents to the emergency room with chest pain 4 out of 10, nonradiating. He reports chest pain improved, he denies shortness of breath, diaphoresis, nausea vomiting diarrhea. Plan to admit for chest pain rule out WA, atrial flutter, with cardiology to consult, ED evaluaton troponin negative, elevated BNP 4255, mild leukocytosis 11.20, microcytic anemia 12.8, 37.3 chest x-ray no acute abnormality. BP 129 / 77; Pulse 70; Resp 16; Temp 99(O); Pulse Ox 97% on R/A; Weight 78.02 kg;Height 5 ft. 7 in. ; Pain 3/10; Rate is 71 beats/min. Rhythm is regular, A flutter with No ectopy. Left axis deviation noted. QRS interval is normal. QT interval is normal. No Q waves. No ST changes noted. - Physical Exam General: Alert, In no apparent distress, Oriented x3 HEENT: Atraumatic, Normocephalic, PERRLA Neck: Supple, 2+ carotid pulse no bruit Respiratory: Clear to auscultation bilaterally, Normal air movement Cardiovascular: No edema, Normal pulses, Other (Atrial flutter 71) Capillary refill: <2 Seconds Gastrointestinal: Normal bowel sounds, Soft and benign, Non-distended Musculoskeletal: No clubbing, No swelling Integumentary: No breakdown, No significant lesion, No tenderness/swelling Neurological: Normal gait, Normal speech, Normal strength at 5/5 x4 extr, Cranial nerves 3-12 intact Hospital Course: 83-year-old male with a past medical history of WA, CABG x 6, hard of hearing, presents to the emergency room with chest pain 4 out of 10, nonradiating. He reports chest pain improved, he denies shortness of breath, diaphoresis, nausea vomiting diarrhea. Plan to admit for chest pain rule out WA, atrial flutter, cardiology was consulted. Tolerating diet, plan to discharge home, follow-up with cardiology Assessment Atrial flutter discharged home on Lopressor 12.51 p.o. twice daily, aspirin 81 mg, Eliquis 1 p.o. twice daily, follow-up with cardiology after Chest pain, serial troponins negative Continue home medicines as previously prescribed GOAL: Clear understanding of disease process INSTRUCTIONS: Physician Discharge Instructions: -Follow-up with PCP in 1 to 2 weeks -Follow-up with cardiology after discharge -Please call Dr. eTllo at [phone] if any questions regarding hospital stay -Please call nursing station at [phone] if any nursing or medication questions -Return to the emergency room if symptoms worsen Diet: ADA, low sodium Activity: Fall precautions Vital Signs/Physical Exam: Temp Pulse Resp BP Pulse Ox 97.7 F 61 12 132/75 95 08/18/24 08:00 08/18/24 08:00 08/18/24 08:00 08/18/24 08:00 08/18/24 08:00 Laboratory Data at Discharge: WBC 9.30 thou/uL (4.3-10.9) 08/18/24 04:04 Hgb 12.7 g/dL (13.6-17.9) L 08/18/24 04:04 Hct 36.6 % (39.6-49.0) L 08/18/24 04:04 Plt Count 193 thou/uL (152-406) 08/18/24 04:04 Sodium 139 mEq/L (136-145) 08/18/24 04:07 Potassium 3.9 mEq/L (3.5-5.1) 08/18/24 04:07 BUN 13 mg/dL (7-18) 08/18/24 04:07 Creatinine 0.99 mg/dL (0.70-1.30) 08/18/24 04:07 Glucose 104 mg/dL (74-106) 08/18/24 04:07 Magnesium 2.2 mg/dL (1.6-2.4) 08/18/24 04:07 Total Bilirubin 1.2 mg/dL (0.2-1.0) H 08/18/24 04:07 AST 16 U/L (15-37) 08/18/24 04:07 ALT 20 U/L (16-61) 08/18/24 04:07 Alkaline Phosphatase 122 U/L (45-117) H 08/18/24 04:07 Home Medications: Amlodipine [Norvasc*] 5 mg PO DAILY 02/25/23 Aspirin [Adult Aspirin Regimen] 81 mg PO DAILY 02/25/23 Atorvastatin Calcium [Lipitor] 40 mg PO BEDTIME 02/25/23 Finasteride 5 mg PO DAILY 02/25/23 Latanoprost Ophth [Xalatan 0.005%*] 2 drops OPTH DAILY 02/25/23 Metoprolol Tartrate 12.5 mg PO BID 02/25/23 Tamsulosin [Flomax*] 0.4 mg PO DAILY 02/25/23 Apixaban [Eliquis] 5 mg PO BID 30 Days #60 tab 08/18/24 Atorvastatin Calcium [Lipitor] 40 mg PO BEDTIME tab 08/18/24 Tamsulosin [Flomax*] 0.4 mg PO DAILY cap 08/18/24 New Medications: Apixaban [Eliquis] 5 mg PO BID 30 Days #60 tab Physician Discharge Instructions: 83-year-old male with a past medical history of WA, CABG x 6, hard of hearing, presents to the emergency room with chest pain 4 out of 10, nonradiating. He reports chest pain improved, he denies shortness of breath, diaphoresis, nausea vomiting diarrhea. Plan to admit for chest pain rule out WA, atrial flutter, with cardiology to consult, Assessment Chest pain rule out WA, serial troponins are negative, seen well cardiology 1 Atrial flutter controlled rate, follow-up with cardiology after discharge History of WA, History of CABG x 6, Patient can discharge home On Eliquis 5 mg 1 p.o. twice daily- Atrial flutter metoprolol 12.51 p.o. twice daily Aspirin 81 mg daily Lipitor 40 mg at bedtime Continue home medicines as previously prescribed GOAL: Clear understanding of disease process INSTRUCTIONS: Physician Discharge Instructions: -Follow-up with cardiology after discharge -Follow-up with PCP in 1 to 2 weeks -Please call Dr. Tello at [phone] if any questions regarding hospital stay -Please call nursing station at [phone] if any nursing or medication questions -Return to the emergency room if symptoms worsen Diet: ADA, low sodium Activity: Fall precautions Followup: Holland Gonzalez MD [ACTIVE - CAN ADMIT] - [facility] [Primary Care Provider] - Time spent managing pt's care (in minutes): 45
[2024-08-18] MEDS: ASPIRIN EC 81 MG TAB PO SCH (09:47)
[2024-08-18] MEDS: TAMSULOSIN 0.4 MG SR CAP PO SCH (10:00)
[2024-08-18] MEDS: FINASTERIDE 5 MG TAB PO SCH (10:00)
[2024-08-18] MEDS: AMLODIPINE 5 MG TAB PO SCH (10:00)
[2024-08-18] MEDS: POTASSIUM CL SA 10 MEQ TAB PO ONE (10:00)
[2024-08-18] MEDS: APIXABAN 5 MG TABLET PO SCH (10:35)
[2024-08-18 12:53] VITALS: BP 126/66; TEMP 98.3
--- NOTE | 2024-08-21 06:47 | ECHO ---
HEIGHT: 5 ft 7 in WEIGHT: 172 lb 0.074 oz DATE OF STUDY: 08/18/[address]: Gale Montague GYRO MECHANIC-C 2-DIMENSIONAL: YES M.MODE: YES DOPPLER: YES COLOR FLOW: YES TDS: PORTABLE: YES DEFINITY: BUBBLE STUDY: DIAGNOSIS: EVALUATE CONGESTIVE HEART FAILURE CARDIAC HISTORY: CATHERIZATION: YES SURGERY: YES PROSTHETIC VALVE: NO PACEMAKER: NO MEASUREMENTS (cm) DIASTOLIC (NORMALS) SYSTOLIC (NORMALS) IVSd 1.0 (0.6-1.2) LA Diam 3.0 (1.9-4.0) LVEF 60-65% LVIDd 4.4 (3.5-5.7) LVIDs 2.8 (2.0-3.5) %FS 37% LVPWd 1.0 (0.6-1.2) Ao Diam 3.1 (2.0-3.7) 2 DIMENSIONAL ASSESSMENT: RIGHT ATRIUM: ENLARGED LEFT ATRIUM: NORMAL RIGHT VENTRICLE: MILDLY DILATED LEFT VENTRICLE: NORMAL TRICUSPID VALVE: MODERATE TO SEVERE TRICUSPID REGURGITATION MITRAL VALVE: MILD MITRAL REGURGITATION PULMONIC VALVE: NORMAL AORTIC VALVE: NORMAL PERICARDIAL EFFUSION: NONE AORTIC ROOT: NORMAL LEFT VENTRICULAR WALL MOTION: NORMAL DOPPLER/COLOR FLOW: SEE BELOW COMMENTS: 1. NORMAL LEFT VENTRICULAR EJECTION FRACTION 60-65% 2. NORMAL WALL MOTION 3. DILATED RIGHT VENTRICLE WITH NORMAL FUNCTION 4. MODERATE TO SEVERE TRICUSPID REGURGITATION 5. MILD RIGHT ATRIAL ENLARGEMENT TECHNOLOGIST: JESSICA BURGER
== END 2024-08-18 13:30 | disposition home or self-care (01) ==
LOC: ER 11:49 → ERHOLD 16:02 → 2ND 20:09
PROVIDERS: ADMIT Hospitalist; ATTEND Hospitalist
DX: I48.92 Unspecified atrial flutter (principal); R07.9 Chest pain, unspecified; H91.90 Unspecified hearing loss, unspecified ear; Z95.1 Presence of aortocoronary bypass graft; Z79.82 Long term (current) use of aspirin
CPT/HCPCS: 93005; 93306; 85025 ×2; 80048; 36415; 83735; 80076; 84484 ×4; 80053; 83880 ×2; 71045; 99285; G0378 ×4